=== PATIENT | male | born 1975 | race Caucasian/White ===

== ENCOUNTER 2020-01-21 15:28 | Inpatient (IN) | payer OTHER ==
[~2020-01-21] VITALS: Ht 182.9 cm; Wt 178.9 kg
--- OUTSIDE RECORDS SUMMARY | 2020-01-21 15:31 | XMS REPORT | Clinical Summary ---
Author Author [facility] ict Organization [facility] ict Address Unknown Phone Unavailable Care Team Providers Care Nuclear Medicine Medical Director Name Role Phone PCP Unavailable Allergies Comments Active Allergy Reactions Severity Noted Date NO KNOWN FOOD, MEDICATION OR LATEX ALLERGIES OF 12-24-2014. No Known Allergies 12/24/2014 Medications End Date Status Medication Sig Dispensed Refills Start Date Active lisinopril-hydrochlorothi Take 1 tablet 30 tablet 0 azide (PRINZIDE, by mouth 5 ZESTORETIC) 20-25 mg per daily. tabletIndications: Hypertension Active traMADol (ULTRAM) 50 mg Take 1 tablet 30 tablet 0 tabletIndications: by mouth 6 Puncture wound of left every 8 hours foot, initial encounter as needed for Pain. Active ibuprofen (MOTRIN) 800 mg Take 1 tablet 30 tablet 0 tabletIndications: by mouth 6 Puncture wound of left every 8 hours foot, initial encounter as needed for Pain. Active Problems Problem Noted Date Puncture wound of left foot 06/27/2016 Family History Medical History Relation Name Comments Cancer Paternal Grandfather Hypertension Paternal Grandfather Relation Name Status Comments Paternal Grandfather Social History Date Tobacco Use Types Packs/Day Years Used Passive Smoke Exposure - Never Smoker Drinks/Week oz/Week Comments Alcohol Use No Sex Assigned at Date Recorded Not on file Industry Job Start Date Occupation Not on file Not on file Not on file Travel End Travel History Travel Start No recent travel history available. Last Filed Vital Signs Not on file Plan of Treatment Health Maintenance Due Date Last Done Comments IMM Influenza Seasonal 05/13/2020 Oct to October (>/= 19 yrs) Results Not on fileafter 01/20/2019 Insurance Type Payer Benefit Subscriber ID Effective Phone Address Plan / Dates Group [facility] SELF-PAY SELF-PAY xxxxxxxxx 2016 [phone] [id number] [place] [address] Guarantor Name Account Relation to Date of Phone Ivis navarrete Address Type Patient Geoffrey Harkins Personal/F Self 1975 [phone] [id number] (Home) [place] [address]
[2020-01-21] MEDS ORDERED: SODIUM CHLORIDE 0.9% 1000ML 1,000 ML IV STA ×3 (15:57→17:57)
[2020-01-21] MEDS ORDERED: ASPIRIN 81 MG CHEW TAB PO ONE (16:00)
--- NOTE | 2020-01-21 16:08 | Emergency Department Note ---
History of Present Illnes History of Present Illness Chief Complaint: Skin Rash or Abscess History of Present Illness This is a 44 year old male .lower ext swelling redness for several weeks note elevated bp and elevated blood sugar non compliant SWELLING/REDNESS PEDAL PULSE PALPABLE X 1 MONTH STATES IN THE LAST WEEK HE STARTED TO NOTICE REDNESS/SWELLING TO BILATERAL FOREARMS AND REDNSS TO ABD ALL WARM TO TOUCH C/O ITCH STATES HE DID NOT HAVE INSURANCE AND HAS NOT BEEN CONTROLLING DM AND HTN ALSO C/O INCONTINENCE WHEN STANDING Historian: Patient Arrival Mode: Car Onset (how long ago): week(s) Location: bilat lower ext swelling redness Quality: mod Radiation: Denies non-radiation, Denies back, Denies neck, Denies extremity, Denies abdomen, Denies periumbilical, Denies flank, Denies proximal, Denies dist al, Denies other Severity: moderate Timing of current episode: constant Progression: worsening Context: Denies recent illness, Denies recent surgery, Denies recent immo bilization, Denies recent travel, Denies trauma/injury, Denies new medications, Denies hx of DVT/PE, Denies non-compliance w/ medications, Denies other Relieving factors: none Exacerbating factors: none Treatments prior to arrival: none Past Medical/Family History Physician Review I have reviewed the patient's past medical and family history. Any updates have been documented here. Past Medical History Recent Fever: No Clinical Suspicion of Infectio: Yes New/Unexplained Change in Ment: No Past Medical History: Hypertension, Diabetes Other Surgery: RETINAL DETACHMENT Social History Smoking Cessation: Never Smoker Alcohol Use: None Any Illegal Drug Use: No TB Exposure/Symptoms: No Physically hurt or threatened: No Family History Family history of heart diseas: No Other Last Tetanus: UNK Any Pre-Existing Lines (PICC,: No Review of Systems Review of Systems Constitutional: Reports no symptoms EENTM: Reports no symptoms Cardiovascular: Reports no symptoms Respiratory: Reports no symptoms Gastrointestinal: Reports no symptoms Genitourinary: Reports no symptoms Musculoskeletal: Reports no symptoms Integumentary: Reports no symptoms, Reports other (This is a 44 year old male .lower ext swelling redness and pain for several weeks note elevated bp and elevated blood sugar non compliant) Neurological: Reports no symptoms Psychological: Reports no symptoms Endocrine: Reports no symptoms Hematological/Lymphatic: Reports no symptoms Review of other systems All other systems reviewed and negative. Physical Exam Related Data Allergies: Coded Allergies: No Known Allergies (Unverified , 01/21/20) Triage Vital Signs Vital Signs Date Time Temp Pulse Resp B/P (MAP) Pulse Ox O2 Delivery O2 Flow Rate FiO2 01/21/20 15:38 97.7 96 26 221/122 92 Vital signs reviewed: Yes Physical Exam CONSTITUTIONAL Constitutional: Reports well-developed, Reports well-nourished HENT HENT: Reports normocephalic, Reports atraumatic, Reports oropharynx clear/moist, Reports nose normal HENT L/R: Reports left ext ear normal, Reports right ext ear normal EYES Eyes: Reports PERRL, Reports conjunctivae normal NECK Neck: Reports ROM normal PULMONARY Pulmonary: Reports effort normal, Reports breath sounds normal CARDIOVASCULAR Cardiovascular: Reports regular rhythm, Reports heart sounds normal, Reports capillary refill normal, Reports normal rate GASTROINTESTINAL Abdominal: Reports soft, Reports nontender, Reports bowel sounds normal GENITOURINARY Genitourinary: Reports exam deferred SKIN Skin: Reports warm, Reports dry, Reports erythema, Reports other (This is a 44 year old male .lower ext swelling redness for several weeks note elevated bp and elevated blood sugar non compliant- noted redness swelling on exam to lower ext worse on left side w/ weeping noted ) MUSCULOSKELETAL Musculoskeletal: Reports ROM normal NEUROLOGICAL Neurological: Reports alert, Reports oriented x 3, Reports no gross motor or sensory deficits PSYCHOLOGICAL Psychological: Reports mood/affect normal, Reports judgement normal Results Diagnostics Tests Diagnostic comments venous dopplar study neg for dvt Procedures 12 Lead ECG Interpretation ECG Interpretation : Bellows Assembler: Interpreted by ED physician Date: Jan 21, 2020 Time: 16:06 Prior ECG tracings: reviewed Rhythm: sinus rhythm Rate: normal BPM: 96 QRS axis: left Conduction: right bundle branch block T wave inversion: V1 Other findings: prolonged QTc interval Assessment & Plan Medical Decision Making MDM This is a 44 year old male .lower ext swelling redness for several weeks note elevated bp and elevated blood sugar non compliant - lab ekg cxr blood culture lactic ordered and pt medicated w/ zosyn vanc in ed D/D cellulitis / sepsis / dvt / hyperglycemia / hypertension suspect sepsis - meets SIRS criteria hr 96 resp 26 o2 sat 92% rm air source - skin blood cultures lactic drawn in triage pt medicated w/ zosyn and van and ns 1 liter ordered in triage severe sepsis 1625 1st lactic- 2.2 wbc 11.36 2nd bolus ns ordered 1756 2nd lactic 2.9 3rd liter ns ordered Reassessment Reassessment time: 17:43 Reassessment discussed lab rad results plan of care and need for admit spoke w/ Dr Galvan will admit Assessment & Plan Final Impression: (1) Hypertension (2) Hyperglycemia (3) Sepsis (4) Cellulitis Depart Disposition: ADMITTED Last Vital Signs Date Time Temp Pulse Resp B/P (MAP) Pulse Ox O2 Delivery O2 Flow Rate FiO2 01/21/20 15:38 97.7 96 26 221/122 92 FLAVIO THAYER MD Jan 21, 2020 16:08
[2020-01-21 16:11] LABS: BASOPHILS % 0.3 % (0.0-1.0); EOSINOPHILS # (AUTO) 1.7 (0.0-0.4); EOSINOPHILS % 15.1 % (0.0-6.0); HEMATOCRIT 46.9 % (38.2-49.6); HEMOGLOBIN 15.1 g/dL (14.0-18.0); LYMPHOCYTES # (AUTO) 1.9 (1.0-3.2); MEAN CORPUSCULAR HGB CONC 32.2 g/dL (31-35); MONOCYTES # (AUTO) 0.7 (0.2-0.8); MONOCYTES % 6.5 % (4.4-11.3); NEUTROPHILS # (AUTO) 6.9 (2.1-6.9); NEUTROPHILS % 60.7 % (38.7-80.0); PLATELET COUNT 237 x10e3/uL (140-360); RED BLOOD COUNT 5.39 x10e6/uL (4.3-5.7); RED CELL DISTRIBUTION WIDTH 15.1 % (11.7-14.4)
[2020-01-21 16:20] LABS: INR 0.88; PROTHROMBIN TIME 12.5 seconds (11.9-14.5)
[2020-01-21 16:21] LABS: PARTIAL THROMBOPLASTIN TIME 25.4 seconds (23.8-35.5)
[2020-01-21 16:27] LABS: ALANINE AMINOTRANSFERASE 82 IU/L (0-55); ALBUMIN 3.1 g/dL (3.5-5.0); ALBUMIN/GLOBULIN RATIO 0.8 (0.8-2.0); ALKALINE PHOSPHATASE 116 IU/L (40-150); ANION GAP 15.1 mmol/L (8-16); BLOOD UREA NITROGEN 13 mg/dL (7-26); BUN/CREATININE RATIO 12 (6-25); CALCIUM 9.1 mg/dL (8.4-10.2); CARBON DIOXIDE 26 mmol/L (22-29); CHLORIDE 101 mmol/L (98-107); CREATINE KINASE 128 IU/L (30-200); CREATININE, SERUM 1.09 mg/dL (0.72-1.25); EST GLOMERULAR FILTRATION RATE > 60 ML/MIN (60-); GLUCOSE 297 mg/dL (74-118); POTASSIUM 3.1 mmol/L (3.5-5.1); SODIUM 139 mmol/L (136-145)
[2020-01-21] MEDS ORDERED: HYDRALAZINE HCL 20 MG/ML VIAL IV STA (16:27)
[2020-01-21 16:29] LABS: BILIRUBIN,URINE NEGATIVE (NEGATIVE); CLARITY,URINE CLEAR (CLEAR); COLOR,URINE AMBER (YELLOW); KETONES,URINE TRACE (NEGATIVE); LEUKOCYTE ESTERASE ,URINE NEGATIVE (NEGATIVE); NITRITE,URINE NEGATIVE (NEGATIVE); PROTEIN,URINE DIPSTICK 2+ (NEGATIVE); URINE UROBILINOGEN 0.2 mg/dL (0.2 - 1)
[2020-01-21 16:37] LABS: BACTERIA,URINE FEW /HPF; EPITHELIAL CELLS,URINE FEW /LPF; WBC,URINE (MAN) 0-5 /HPF (0-5)
[2020-01-21 16:37] LABS: B-TYPE NATRIURETIC PEPTIDE2 63.2 pg/mL (0-100)
[2020-01-21] MEDS ORDERED: POTASSIUM CHLORIDE 20 MEQ TAB CR PO STA (16:38)
[2020-01-21] MEDS: PIPER-TAZ 3.375 GM 50 ML IV SCH ×2 (16:51→22:30)
[2020-01-21] MEDS ORDERED: VANCOMYCIN 1GM/NS 250 ML 250 ML IV ONE (17:00)
[2020-01-21] MEDS ORDERED: MORPHINE SULFATE 2 MG/ML SYR 1ML IV PRN (17:45)
[2020-01-21] MEDS ORDERED: SODIUM CHLORIDE 0.9% 1000ML 1,000 ML IV SCH (17:45)
[2020-01-21] MEDS ORDERED: NITROGLYCERIN 2% OINT 1 GM PKT TOP ONE (17:45)
[2020-01-21] MEDS ORDERED: MORPHINE SULFATE INJ 4 MG/ML INJ 1ML IV PRN (18:00)
--- OUTSIDE RECORDS SUMMARY | 2020-01-21 18:01 | XMS REPORT | Clinical Summary ---
Author Author [facility] ict Organization [facility] ict Address Unknown Phone Unavailable Care Team Providers Care Sales Recruitment Specialist Name Role Phone PCP Unavailable Allergies Comments [...] Effective Phone Address Plan / Dates Group [facility] SELF-PAY SELF-PAY xxxxxxxxx 2016 [phone] [id number] [place] [place] [address] Guarantor Name Account Relation to Date of Phone Ivis navarrete Address Type Patient Geoffrey Harkins Personal/F Self 1975 [phone] [address] (Home) [place] [address]
--- NOTE | 2020-01-21 18:16 | Diagnostic Imaging Report ---
EXAM: CHEST SINGLE (PORTABLE) DATE: 01/21/2020 5:20 PM INDICATION: Diabetic ulcer, leg swelling ^Y ^ERMD ORDER ^[id number] ^1720 ^Y COMPARISON: None FINDINGS: Lines and tubes: None The heart is upper normal size for this projection. No focal pulmonary opacity, pleural effusion or pneumothorax. Prominence of markings at the lung bases likely related to underpenetration and low lung volumes. Upper abdomen unremarkable. No acute bony abnormality. IMPRESSION: No evidence for acute disease. Signed by: Dr. Deshawn Archibald M.D. on 01/21/2020 6:12 PM
[2020-01-21] MEDS ORDERED: POTASSIUM CHLORIDE 20 MEQ TAB CR PO ONE (21:19)
[2020-01-21 21:45] VITALS: BP 208/121
[2020-01-21 21:50] VITALS: BP 208/121
--- NOTE | 2020-01-21 22:15 | NUR ---
PATIENT RECEIVED FROM ER. PATIENT IS AAOX3. RESP EVEN AND UNLABORED. BLE CELLULITIS NOTED. LEFT LEG RED AND SWOLLEN NOTED. GENERALIZE RASHES NOTED. TELE IN PLACE NOTED. ORIENTED TO ROOM. CALL LIGHT WITHIN REACH. INSTRUCT TO CALL FOR ASSISTANCE. BED LOW/LOCKED. CONTINUE TO MONITOR CLOSELY
[2020-01-21] MEDS: HYDROXYZINE HCL 25 MG TAB PO PRN (22:30)
[2020-01-21] MEDS: CLONIDINE HCL 0.1 MG TAB PO PRN (22:30)
--- NOTE | 2020-01-21 22:30 | NUR ---
HIGH BLOOD PRESSURE NOTED. DR HERNÁNDEZ PREVIOUSLY NOTIFIED BY ER NURSE. PRN MED GIVEN PER MD ORDER. CONTINUE TO MONITOR CLOSELY
[2020-01-22] VITALS (10 sets, daily range): BP systolic 146–239; BP diastolic 93–115
--- NOTE | 2020-01-22 00:27 | NUR ---
HIGH BLOOD PRESSURE NOTED. NOTIFIED DR HERNÁNDEZ. NEW ORDER RECEIVED
[2020-01-22] MEDS ORDERED: DEXTROSE 50% SYRINGE 50 ML IV PRN (00:30)
[2020-01-22] MEDS: ONDANSETRON HCL INJ 2MG/ML 2ML 2 MG/ML VIAL IV PRN (00:39)
[2020-01-22] MEDS: HYDROMORPHONE 1MG/1ML INJ IV PRN (00:39)
[2020-01-22] MEDS: PIPER-TAZ 3.375 GM 50 ML IV SCH ×3 (04:01→15:59)
[2020-01-22] MEDS: CLONIDINE HCL 0.1 MG TAB PO PRN (06:10)
--- NOTE | 2020-01-22 06:40 | NUR ---
PAGED DR ALVAREZ FOR CONSULTATION. AWAITING FOR MD TO CALL BACK
[2020-01-22 06:49] LABS: BASOPHILS # (AUTO) 0.1 (0.0-0.1); BASOPHILS % 0.4 % (0.0-1.0); EOSINOPHILS # (AUTO) 1.8 (0.0-0.4); EOSINOPHILS % 14.2 % (0.0-6.0); HEMATOCRIT 46.4 % (38.2-49.6); HEMOGLOBIN 14.5 g/dL (14.0-18.0); LYMPHOCYTES # (AUTO) 1.7 (1.0-3.2); MEAN CORPUSCULAR HEMOGLOBIN 27.9 pg (28-32); MEAN CORPUSCULAR HGB CONC 31.3 g/dL (31-35); MEAN CORPUSCULAR VOLUME 89.2 fL (81-99); MONOCYTES % 7.6 % (4.4-11.3); NEUTROPHILS # (AUTO) 7.9 (2.1-6.9); NEUTROPHILS % 63.4 % (38.7-80.0); PLATELET COUNT 194 x10e3/uL (140-360); RED CELL DISTRIBUTION WIDTH 15.4 % (11.7-14.4)
--- NOTE | 2020-01-22 07:00 | NUR ---
BEDSIDE SHIFT REPORT RECEIVED FROM LEAD FORMER RN. PT DENIES NEEDS AT THIS TIME.
[2020-01-22 07:07] LABS: ALANINE AMINOTRANSFERASE 81 IU/L (0-55); ALBUMIN 2.9 g/dL (3.5-5.0); ALBUMIN/GLOBULIN RATIO 0.8 (0.8-2.0); ALKALINE PHOSPHATASE 119 IU/L (40-150); ANION GAP 13.5 mmol/L (8-16); BLOOD UREA NITROGEN 12 mg/dL (7-26); BUN/CREATININE RATIO 10 (6-25); CALCIUM 8.2 mg/dL (8.4-10.2); CARBON DIOXIDE 25 mmol/L (22-29); CHLORIDE 104 mmol/L (98-107); CREATININE, SERUM 1.17 mg/dL (0.72-1.25); EST GLOMERULAR FILTRATION RATE > 60 ML/MIN (60-); GLUCOSE 302 mg/dL (74-118); POTASSIUM 3.5 mmol/L (3.5-5.1); SODIUM 139 mmol/L (136-145)
[2020-01-22] MEDS: HYDRALAZINE HCL 25 MG TAB PO SCH ×3 (08:32→21:28)
[2020-01-22] MEDS: INSULIN LISPRO 100 UNIT/1 ML 3ML VIAL SQ SCH ×4 (08:33→21:30)
[2020-01-22] MEDS ORDERED: HYDRALAZINE HCL 25 MG TAB PO SCH (09:00)
[2020-01-22] MEDS ORDERED: LISINOPRIL 10 MG TAB PO SCH (09:00)
[2020-01-22] MEDS ORDERED: METOPROLOL TART25 MG PO (18:30)
[2020-01-22] MEDS ORDERED: CYMBALTA20 MG PO (18:30)
[2020-01-22] MEDS ORDERED: LISINOPRIL40 MG (18:30)
[2020-01-22] MEDS ORDERED: CLOPIDOGREL75 MG PO (18:30)
[2020-01-22] MEDS ORDERED: LEVOTHYROXINE50 MCG PO (18:30)
[2020-01-22] MEDS ORDERED: ASPIR 8181 MG (18:30)
[2020-01-22] MEDS ORDERED: DILTIAZEM 24HR120 M1 (18:30)
[2020-01-22] MEDS ORDERED: ULTRAM50 MG PO (18:30)
[2020-01-22] MEDS ORDERED: METFORMIN HCL500 MG PO (18:30)
[2020-01-22] MEDS ORDERED: SPIRONOLACTONE25 MG PO (18:30)
[2020-01-22] MEDS ORDERED: PRAVACHOL40 MG PO (18:30)
[2020-01-22] MEDS: VANCOMYCIN 1GM/NS 250 ML 250 ML IV SCH (18:35)
[2020-01-22] MEDS: CEFTRIAXONE SOD 2 GM/NS 100 ML 100 ML IV SCH (21:40)
[2020-01-23] VITALS (8 sets, daily range): BP systolic 115–181; BP diastolic 87–121
[2020-01-23] MEDS: CLONIDINE HCL 0.1 MG TAB PO PRN (00:45)
[2020-01-23] MEDS ORDERED: ACETAMINOPHEN 325 MG TAB PO PRN (04:45)
[2020-01-23] MEDS: FUROSEMIDE 40 MG TAB PO SCH ×2 (05:15→18:37)
[2020-01-23] MEDS: VANCOMYCIN 1GM/NS 250 ML 250 ML IV SCH ×2 (05:25→18:37)
--- NOTE | 2020-01-23 05:47 | Progress Note ---
DATE: 01/22/2020 HISTORY OF PRESENT ILLNESS: Mr. Harkins is a 44-year-old white male, history of obesity, history of dermatitis, comes in with redness and swelling of his leg. The patient was admitted and started on Zosyn. The patient, who does have diabetes, obesity, and dermatitis. The leg was quite red and swollen. PAST MEDICAL HISTORY: As above. PAST SURGICAL HISTORY: He denies. ALLERGIES: NKA. SOCIAL HISTORY: There is no smoking, drug abuse, or alcohol use. FAMILY HISTORY: Unremarkable. LABORATORY DATA: Reviewed. PHYSICAL EXAMINATION: GENERAL: He is currently alert and oriented. Does not seem to be in acute distress. VITAL SIGNS: Stable, currently afebrile. HEENT: He is not icteric. NECK: Supple. CHEST: Clear. HEART: S1 and S2. No S3, S4, or murmur. ABDOMEN: Soft and obese. No tenderness. EXTREMITIES: The right leg, there is erythema. There is edema involving the whole leg. He is telling me that is a lot better since he came. LABORATORY DATA: When he first came was white count 11.36, hemoglobin 15. His sodium 139, potassium 3.5, creatinine 1.17, glucose 302. IMPRESSION: 1. Cellulitis of the left lower extremity. 2. Diabetes mellitus. 3. Obesity. 4. Elevated liver enzyme. We will put the patient on Rocephin 2 g q.24 hours and vancomycin 1 g q.12. We will continue to follow clinically. Recheck CBC. Recheck chem panel. Diabetic control is ordered. We will follow. MD MALLORIE Adorno/MODL /[id number]
[2020-01-23 06:54] LABS: BASOPHILS # (AUTO) 0.1 (0.0-0.1); BASOPHILS % 0.5 % (0.0-1.0); EOSINOPHILS # (AUTO) 1.6 (0.0-0.4); EOSINOPHILS % 10.5 % (0.0-6.0); HEMATOCRIT 48.2 % (38.2-49.6); HEMOGLOBIN 14.9 g/dL (14.0-18.0); LYMPHOCYTES # (AUTO) 1.8 (1.0-3.2); LYMPHOCYTES % 11.9 % (18.0-39.1); MEAN CORPUSCULAR HEMOGLOBIN 28.1 pg (28-32); MEAN CORPUSCULAR HGB CONC 30.9 g/dL (31-35); MEAN CORPUSCULAR VOLUME 90.9 fL (81-99); MONOCYTES % 6.7 % (4.4-11.3); NEUTROPHILS # (AUTO) 10.5 (2.1-6.9); PLATELET COUNT 229 x10e3/uL (140-360); RED CELL DISTRIBUTION WIDTH 15.2 % (11.7-14.4)
--- NOTE | 2020-01-23 07:00 | NUR ---
BEDSIDE SHIFT REPORT RECEIVED FROM BALL RACKER RN. PT DENIES NEEDS AT THIS TIME.
[2020-01-23 07:32] LABS: ALANINE AMINOTRANSFERASE 76 IU/L (0-55); ALBUMIN 3.1 g/dL (3.5-5.0); ALBUMIN/GLOBULIN RATIO 0.8 (0.8-2.0); ALKALINE PHOSPHATASE 110 IU/L (40-150); ANION GAP 15.6 mmol/L (8-16); BLOOD UREA NITROGEN 10 mg/dL (7-26); BUN/CREATININE RATIO 9 (6-25); CALCIUM 8.1 mg/dL (8.4-10.2); CARBON DIOXIDE 24 mmol/L (22-29); CHLORIDE 103 mmol/L (98-107); CREATININE, SERUM 1.15 mg/dL (0.72-1.25); EST GLOMERULAR FILTRATION RATE > 60 ML/MIN (60-); GLUCOSE 219 mg/dL (74-118); POTASSIUM 3.6 mmol/L (3.5-5.1); SODIUM 139 mmol/L (136-145)
[2020-01-23] MEDS: HYDRALAZINE HCL 25 MG TAB PO SCH ×3 (08:19→21:37)
[2020-01-23] MEDS: INSULIN LISPRO 100 UNIT/1 ML 3ML VIAL SQ SCH ×4 (08:20→21:00)
--- NOTE | 2020-01-23 13:13 | Progress Note ---
DATE: SUBJECTIVE: The patient is seen and evaluated. Available labs and notes reviewed. Discussed with Dr. Beard. A long discussion with the patient. Patient is currently comfortable in bed, feels better, still complains of cellulitis of left leg and complained about his sugar not being controlled at home. No nausea, vomiting, fever, chills, chest pain, or shortness of breath. OBJECTIVE: VITAL SIGNS: Temperature is 98.7, pulse 90, respirations 18, and blood pressure 161/115. The patient did not have any temperature of greater than 98.9 during this admission. GENERAL: Alert and oriented, no acute distress. CV: S1 and S2. CHEST: Equal expansion. Decreased breath sounds. The patient is morbidly obese, not easy to asses the lungs. ABDOMEN: Morbidly obese, soft and no tenderness. HEENT: Moist. No pallor. No JVD. EXTREMITIES: Cellulitis in left lower extremity from the foot almost to the knee with some xeroderma and wounds that seem to be dried up and scabbed over. MEDICATIONS: Medication list reviewed as far as Infectious Disease point of view. The patient is on vancomycin IV and Rocephin. LABORATORY STUDIES: White count of 15.02, hemoglobin 14.9, platelet 229. Sodium 139, potassium 3.6, creatinine 1.15. SEROLOGY: Coronavirus PCR 01/21/2020 is pending. MICROBIOLOGY: Blood culture negative 24 hours. Urine cultures negative 48 hours, both are from 01/21/2020. RADIOLOGY STUDIES: 01/21/2020 chest x-ray showed no evidence for acute disease. The patient had an echocardiogram showing ejection fraction of 45-50%. Also, the patient had venous Doppler bilateral lower extremities, which were negative for DVTs. ASSESSMENT AND PLAN: 1. Left lower extremity cellulitis. 2. Diabetes not controlled. 3. Morbid obesity. 4. Elevated LFTs with a recheck improving AST from 47 to 37 and ALT also improving from 81 to 76. Total bilirubin 0.6 with ALP of 110, which has improved from 08/31. Continue with IV antibiotics at this time with elevated lower extremities. Venous Dopplers negative for DVT and ejection fraction of 45-50% on echo. Continue monitor patient clinically and follow with the labs. Discussed with the nurse. No new events. Discussed with Dr. Beard. Please refer to chart for more information. Dictated by ILSA Ojeda (Al)-C MD [facility] Ad[facility]/KIM /[id number]
[2020-01-23] MEDS: CEFTRIAXONE SOD 2 GM/NS 100 ML 100 ML IV SCH (21:13)
[2020-01-23] MEDS: TRAMADOL HCL 50 MG TAB PO PRN (23:54)
[2020-01-24] VITALS (9 sets, daily range): BP systolic 149–191; BP diastolic 86–106
[2020-01-24] MEDS: ONDANSETRON HCL INJ 2MG/ML 2ML 2 MG/ML VIAL IV PRN (00:49)
[2020-01-24] MEDS: HYDROMORPHONE 1MG/1ML INJ IV PRN (00:53)
[2020-01-24] MEDS: HYDROXYZINE HCL 25 MG TAB PO PRN (04:57)
[2020-01-24] MEDS ORDERED: LEVOFLOXACIN 750MG/D5W 150ML 150 ML IV SCH (06:15)
[2020-01-24] MEDS: VANCOMYCIN 1GM/NS 250 ML 250 ML IV SCH ×2 (06:54→17:40)
[2020-01-24] MEDS: FUROSEMIDE 40 MG TAB PO SCH ×2 (06:54→17:40)
--- NOTE | 2020-01-24 07:00 | NUR ---
BEDSIDE SHIFT REPORT RECEIVED FROM GHOST WRITER RN. PT DENIES NEEDS AT THIS TIME.
[2020-01-24] MEDS: HYDRALAZINE HCL 25 MG TAB PO SCH ×3 (08:33→22:26)
[2020-01-24] MEDS: LEVOFLOXACIN 750MG/D5W 150ML 150 ML IV SCH (08:33)
[2020-01-24] MEDS: METHYLPREDNISOLONE SOD SUCC 125 MG/2ML VIAL IV SCH ×2 (08:33→21:05)
[2020-01-24] MEDS: AMLODIPINE BESYLATE 5 MG TAB PO SCH (08:34)
[2020-01-24] MEDS: INSULIN LISPRO 100 UNIT/1 ML 3ML VIAL SQ SCH ×4 (08:34→22:31)
[2020-01-24 10:30] LABS: BASOPHILS # (AUTO) 0.1 (0.0-0.1); BASOPHILS % 0.6 % (0.0-1.0); EOSINOPHILS # (AUTO) 1.3 (0.0-0.4); EOSINOPHILS % 11.1 % (0.0-6.0); HEMATOCRIT 46.2 % (38.2-49.6); HEMOGLOBIN 14.4 g/dL (14.0-18.0); LYMPHOCYTES # (AUTO) 1.2 (1.0-3.2); MEAN CORPUSCULAR HEMOGLOBIN 27.8 pg (28-32); MEAN CORPUSCULAR HGB CONC 31.2 g/dL (31-35); MEAN CORPUSCULAR VOLUME 89.2 fL (81-99); MONOCYTES # (AUTO) 0.6 (0.2-0.8); MONOCYTES % 5.2 % (4.4-11.3); NEUTROPHILS # (AUTO) 8.7 (2.1-6.9); NEUTROPHILS % 72.8 % (38.7-80.0); PLATELET COUNT 215 x10e3/uL (140-360); RED BLOOD COUNT 5.18 x10e6/uL (4.3-5.7); RED CELL DISTRIBUTION WIDTH 15.1 % (11.7-14.4)
[2020-01-24 10:51] LABS: ALANINE AMINOTRANSFERASE 71 IU/L (0-55); ALBUMIN/GLOBULIN RATIO 0.8 (0.8-2.0); ALKALINE PHOSPHATASE 103 IU/L (40-150); ANION GAP 13.1 mmol/L (8-16); BLOOD UREA NITROGEN 8 mg/dL (7-26); BUN/CREATININE RATIO 7 (6-25); CALCIUM 8.2 mg/dL (8.4-10.2); CARBON DIOXIDE 28 mmol/L (22-29); CHLORIDE 100 mmol/L (98-107); CREATININE, SERUM 1.07 mg/dL (0.72-1.25); EST GLOMERULAR FILTRATION RATE > 60 ML/MIN (60-); GLUCOSE 262 mg/dL (74-118); POTASSIUM 3.1 mmol/L (3.5-5.1); SODIUM 138 mmol/L (136-145)
--- NOTE | 2020-01-24 11:47 | NUR ---
PT/SON REFUSED TO PARTICIPATE IN DPA
--- NOTE | 2020-01-24 11:57 | Progress Note ---
DATE: SUBJECTIVE: The patient is seen and evaluated. Available labs and notes reviewed. REVIEW OF SYSTEMS: Feels better. No nausea, vomiting, fever, chills, chest pain, shortness of breath, headache, rash, dysuria, or polyuria. PHYSICAL EXAMINATION: VITAL SIGNS: Temperature 98, pulse 89, respiration 18, and blood pressure 149/86. The patient remains afebrile. GENERAL: Alert and oriented, no acute distress. CV: S1, S2. CHEST: Equal expansion. Decreased breath sounds. No acute distress. ABDOMEN: Morbidly obese, soft, nontender. HEENT: Moist. No pallor. No JVD. EXTREMITIES: Left lower extremity improved in erythema and swelling seems to be slightly improved as well. The wounds are scabbed over and no active drainage noted during my exam. MEDICATIONS: Medication list reviewed. From ID point of view, the patient is on Levaquin, vancomycin IV. The patient is also on methylprednisolone 60 mg IV push q.12 hours. LABORATORY STUDIES: White count of 15.02, concern methylprednisolone 60 mg push b.i.d., hemoglobin is 14.9, platelet 229. BMP; I do not have any new BMP, however, last creatinine was 1.15. His sodium 139, potassium 3.6 with estimated GFR greater than 60. Serology; Coronavirus PCR not detected. Vancomycin trough 01/22 was 18.5. MICROBIOLOGY: Blood culture negative. Urine culture negative on 01/20. Bilateral lower extremity venous Dopplers. No evidence of DVT. The patient had echo showing 45% to 50% ejection fraction. ASSESSMENT AND PLAN: 1. Cellulitis of the left lower extremity. 2. Leukocytosis, concern, methylprednisolone. Clinically no acute distress. Continue to monitor. 3. Diabetes. 4. Morbid obesity. 5. Elevated LFTs, which are improving. I do not have any new liver function tests from today. Please refer to previous note on last LFT results. There is report from Internal Medicine that the patient felt bad with Rocephin. Therefore, Rocephin was changed to Levaquin. We will currently monitor patient clinically. Follow with the labs. The patient had no complaints during my visit. Please refer to chart for more information. Dictated by Florian Snyder PA-C (Al) MD [facility]/HARISL /[id number]
--- NOTE | 2020-01-24 19:30 | NUR ---
Patient received sitting up in bed. AAO x 4. Patient had no complaints of pain. Respirations even and non-labored. Safety measures in place. Patient instructed to call for assistance when needed. Call light within reach.
[2020-01-24] MEDS: CLONIDINE HCL 0.1 MG TAB PO PRN (21:06)
[2020-01-25] VITALS (8 sets, daily range): BP systolic 142–189; BP diastolic 84–110
[2020-01-25] MEDS: FUROSEMIDE 40 MG TAB PO SCH ×2 (05:17→17:52)
[2020-01-25] MEDS: VANCOMYCIN 1GM/NS 250 ML 250 ML IV SCH ×2 (07:00→17:52)
[2020-01-25] MEDS ORDERED: POTASSIUM CHLORIDE 20 MEQ TAB CR PO SCH (07:00)
--- NOTE | 2020-01-25 07:00 | NUR ---
BEDSIDE SHIFT REPORT RECEIVED FROM BRIM STRETCHER RN. PT DENIES NEEDS AT THIS TIME.
--- NOTE | 2020-01-25 07:00 | NUR ---
Patient resting comfortably. Walking rounds done. Shift report given regarding patient's status.
[2020-01-25] MEDS: INSULIN LISPRO 100 UNIT/1 ML 3ML VIAL SQ SCH ×4 (07:55→20:54)
[2020-01-25] MEDS: HYDRALAZINE HCL 25 MG TAB PO SCH ×3 (09:42→20:43)
[2020-01-25] MEDS: LEVOFLOXACIN 750MG/D5W 150ML 150 ML IV SCH (09:42)
[2020-01-25] MEDS: METHYLPREDNISOLONE SOD SUCC 125 MG/2ML VIAL IV SCH ×2 (09:42→20:43)
[2020-01-25] MEDS: AMLODIPINE BESYLATE 5 MG TAB PO SCH (09:42)
--- NOTE | 2020-01-25 13:33 | Progress Note ---
DATE: SUBJECTIVE: The patient is seen and evaluated. Available labs reviewed. Discussed with Dr. Beard and discussed with the patient. REVIEW OF SYSTEMS: Feels better. Apparently, patient has showered this morning and soaked up his left lower extremity cellulitis and cleaned it up and overall redness is down and he feels better. No nausea, vomiting, fever, chills, chest pain, shortness of breath, headache, rash, dysuria, or polyuria. PHYSICAL EXAMINATION: VITAL SIGNS: Temperature 98.1, pulse 103, respirations 19, blood pressure 172/100. GENERAL: Alert and oriented. No breakouts from the antibiotics. No rash is noted. CV: S1-S2. CHEST: Equal expansion. Decreased breath sounds. ABDOMEN: Morbidly obese, abdomen is soft, nontender. HEENT: Moist. No pallor. No JVD. EXTREMITIES: Cellulitis of left lower extremity seems to be slightly improving in redness and edema. Wounds are scabbed over and no active drainage noted. MEDICATIONS: Medication list reviewed. From Infectious Disease point of view, the patient is on vancomycin IV and Levaquin and methylprednisolone. LABORATORY STUDIES: White count of 11.97 yesterday, 01/24/2020 with hemoglobin of 14.4, platelets 215. Creatinine was 1.07. No new CBC or BMP from today. TOXICOLOGY: Vancomycin trough is 10.4. SEROLOGY: Coronavirus PCR not detected 01/21/2020. MICROBIOLOGY: Blood culture negative, 72 hours. Urine culture negative. Both urine and blood cultures are from 01/21/2020. RADIOLOGY STUDIES: No new radiology studies available. ASSESSMENT AND PLAN: 1. Cellulitis of the left lower extremity. 2. Leukocytosis, improved. However, the patient remains on methylprednisone, continue to monitor. 3. Diabetes. 4. Morbid obesity. 5. Elevated LFT. 6. Breakout, from Rocephin, which was changed to Levaquin by attending physician. 7. Continue antibiotics at this point. Vancomycin level is as mentioned above. Leukocytosis is improved. Clinically, no acute distress. Continue with wound care. Elevate lower extremities. Further management of this patient is based on daily findings on laboratory and physical examination. Discussed with Dr. Beard in details. Please refer to the chart for more information. Dictated by Florian Snyder PA-C (Al) MD [facility]/KIM /[id number]
[2020-01-25] MEDS: TRAMADOL HCL 50 MG TAB PO PRN (15:42)
[2020-01-26] VITALS (9 sets, daily range): BP systolic 161–192; BP diastolic 91–120
[2020-01-26] MEDS: CLONIDINE HCL 0.1 MG TAB PO PRN ×2 (00:48→01:54)
--- NOTE | 2020-01-26 00:48 | NUR ---
PATIENT IN STABLE CONDITION. ASYMPTOMATIC.
--- NOTE | 2020-01-26 01:47 | NUR ---
PAGED MD HERNÁNDEZ TO REPORT B/P. AWAITING CALL BACK.
--- NOTE | 2020-01-26 01:54 | NUR ---
SPOKE TO MD HERNÁNDEZ. PATIENT B/P 171/110. ORDERED TO ADMINISTER ANOTHER DOSE CLONIDINE.
[2020-01-26 06:05] LABS: BASOPHILS % 0.2 % (0.0-1.0); HEMATOCRIT 46.6 % (38.2-49.6); HEMOGLOBIN 14.8 g/dL (14.0-18.0); LYMPHOCYTES # (AUTO) 1.3 (1.0-3.2); LYMPHOCYTES % 7.4 % (18.0-39.1); MEAN CORPUSCULAR HEMOGLOBIN 27.8 pg (28-32); MEAN CORPUSCULAR HGB CONC 31.8 g/dL (31-35); MEAN CORPUSCULAR VOLUME 87.6 fL (81-99); MONOCYTES # (AUTO) 0.8 (0.2-0.8); MONOCYTES % 4.6 % (4.4-11.3); NEUTROPHILS # (AUTO) 15.6 (2.1-6.9); NEUTROPHILS % 87.2 % (38.7-80.0); PLATELET COUNT 252 x10e3/uL (140-360); RED BLOOD COUNT 5.32 x10e6/uL (4.3-5.7); RED CELL DISTRIBUTION WIDTH 15.4 % (11.7-14.4)
[2020-01-26 06:32] LABS: ALBUMIN 3.1 g/dL (3.5-5.0); ALBUMIN/GLOBULIN RATIO 0.9 (0.8-2.0); ANION GAP 16.1 mmol/L (8-16); CALCIUM 8.5 mg/dL (8.4-10.2); CREATININE, SERUM 1.33 mg/dL (0.72-1.25); POTASSIUM 3.1 mmol/L (3.5-5.1)
[2020-01-26] MEDS: FUROSEMIDE 40 MG TAB PO SCH ×2 (06:32→08:55)
[2020-01-26] MEDS: VANCOMYCIN 1GM/NS 250 ML 250 ML IV SCH ×2 (06:32→19:53)
--- NOTE | 2020-01-26 07:16 | NUR ---
REPORT GIVEN TO DAYSHIFT NURSE. RESTING IN BED. IN STABLE CONDITION. NO SIGNS OF IV INFILTRATION. ELFEGO LOCKED AND IN LOW POSITION. CALL LIGHT WITHIN REACH.
[2020-01-26] MEDS ORDERED: POTASSIUM CHLORIDE 20 MEQ TAB CR PO STA (08:03)
[2020-01-26] MEDS: LEVOFLOXACIN 750MG/D5W 150ML 150 ML IV SCH (08:51)
[2020-01-26] MEDS ORDERED: SODIUM CHLORIDE 0.9% 250ML 250 ML ONE (08:52)
[2020-01-26] MEDS: AMLODIPINE BESYLATE 5 MG TAB PO SCH (08:54)
[2020-01-26] MEDS: METHYLPREDNISOLONE SOD SUCC 125 MG/2ML VIAL IV SCH ×2 (08:54→22:00)
[2020-01-26] MEDS: HYDRALAZINE HCL 25 MG TAB PO SCH ×3 (08:55→22:00)
--- NOTE | 2020-01-26 10:15 | NUR ---
Pt. expressed no spiritual or emotional concerns at this time. Pt's at bedside. Speech Lang Path Therapist provided hospitality and information on how to reach community fundraiser, if needed. No need to follow at this time. DALLIN GUO Speech Lang Path Therapist Spiritual Care Department O: [phone]
--- NOTE | 2020-01-26 11:00 | NUR ---
Spoke to ILSA Arcos. States pt can discharge home with oral abx. Prescription left in chart.
--- NOTE | 2020-01-26 11:22 | Progress Note ---
DATE: SUBJECTIVE: The patient is seen and evaluated. Available labs and notes reviewed. Discussed with Dr. Beard in details. Please refer to chart for more information. REVIEW OF SYSTEMS: Complained about hypertension, but no headache, nausea, vomiting, fever, chills, chest pain, or shortness of breath. The patient also states that his cellulitis of the left leg has improved in redness and is not as painful. PHYSICAL EXAMINATION: VITAL SIGNS: Temperature 97.9, pulse 88, respiration 20, and blood pressure 169/106. GENERAL: Alert and oriented. No acute distress. CV: S1 and S2. CHEST: Equal expansion. Clear to auscultation. No acute distress. ABDOMEN: Soft and nontender. No distention. HEENT: Moist. No pallor. No JVD. EXTREMITIES: Cellulitis of left lower extremity with some superficial ulcers. No obvious drainage noted. Ulcers are mostly scabbed over. Decrease in edema and erythema. MEDICATIONS: Medication list reviewed and from Infectious Disease point of view, the patient is on vancomycin IV and Levaquin. LABORATORY STUDIES: White count of 17.86, hemoglobin 14.8, and platelet 252. Sodium 140, potassium 3.1, and creatinine 1.33. Toxicology; vancomycin trough 10.4 yesterday, 01/25/2020. Serology; coronavirus PCR not detected, 01/21/2020. MICROBIOLOGY: Blood culture and urine culture on 01/21/2020, negative. RADIOLOGY STUDIES: No new radiology studies available. ASSESSMENT AND PLAN: 1. Left lower extremity cellulitis. 2. Leukocytosis, up a little bit. Medication list reviewed. The patient is on methylprednisolone 60 mg IV push twice a day. Clinically, no complaints. No acute distress. No diarrhea. 3. Hypertension. 4. Diabetes. 5. Morbid obesity. 6. Elevated LFT. Recheck total bilirubin is 0.4, AST 25, ALT 50, ALP 98, which all seen back and within normal limit. 7. Debility. 8. Continue to monitor the patient clinically and follow up with the labs. Overall improved. Please refer to chart for more information. Dictated by Florian Snyder PA-C (Al) Edgar Beard MD /MODL /[id number]
--- NOTE | 2020-01-26 11:23 | NUR ---
SPOKE WITH PT AND , WHOM STATE HE IS CURRENTLY ON MEDICAID. BUT SHE IS HAVING TROUBLE KEEPING HIM ON IT. GAVE GOOD RX AND LIST OF COMAPNIES THAT ASSIST WITH PRESCRIPTIONS, EMERGENCY ASSISTANCE LIST AND ALSO GAVE INFORMATION ABOUT CONTACTING DRUG MANUFACTURES ABOUT THEIR OWN FINANCIAL PROGRAMS.
[2020-01-26] MEDS: TRAMADOL HCL 50 MG TAB PO PRN (12:54)
--- NOTE | 2020-01-26 17:02 | NUR ---
Nutrition Screen Note RD Recommendation for Physician: - Recommend 1800 ADA diet Plan of Care: RD following, monitoring for tolerance and adequacy Nutrition reason for involvement: Length of stay Primary Diagnose(s): cellulitis, sepsis PMH: obesity, dermatitis, diabetes Ht: 72 in Wt:394.5 lb BMI: 53.5 kg/m2 IBW:[address] Assessment: (01/26/20) Chart reviewed. Labs and meds reviewed. Pt is a 44 year old male admitted with cellulitis and sepsis. It is recorded that pt has been consuming 75-100% of meals. There are no previous weights in chart. Will continue to monitor Current Diet: 2400 ADA diet Malnutrition Evaluation (01/26/20) The patient does not meet criteria for a specified degree of malnutrition at this time. Will re-evaluate at follow-up as appropriate. Diet Education Needs Assessment: RD is available for diet education as needed Nutrition Care Level: low (pt is eating well) Signed: Sailaja Nascimento RD, LD
[2020-01-26] MEDS: INSULIN LISPRO 100 UNIT/1 ML 3ML VIAL SQ SCH (18:06)
[2020-01-27] VITALS (8 sets, daily range): BP systolic 126–192; BP diastolic 68–110
[2020-01-27] MEDS: INSULIN LISPRO 100 UNIT/1 ML 3ML VIAL SQ SCH ×5 (00:45→21:15)
[2020-01-27] MEDS: CLONIDINE HCL 0.1 MG TAB PO PRN (01:14)
[2020-01-27] MEDS: FUROSEMIDE 40 MG TAB PO SCH ×2 (06:35→17:20)
--- NOTE | 2020-01-27 07:00 | NUR ---
Walking rounds done. Patient resting comfortably. Bed-side report given to oncoming nurse.
[2020-01-27] MEDS: VANCOMYCIN 1GM/NS 250 ML 250 ML IV SCH ×2 (07:36→17:24)
[2020-01-27] MEDS ORDERED: LISINOPRIL 10 MG TAB PO SCH (09:00)
[2020-01-27] MEDS: LEVOFLOXACIN 750MG/D5W 150ML 150 ML IV SCH (09:30)
[2020-01-27] MEDS: METHYLPREDNISOLONE SOD SUCC 125 MG/2ML VIAL IV SCH ×2 (09:31→20:38)
[2020-01-27] MEDS: AMLODIPINE BESYLATE 5 MG TAB PO SCH (09:32)
[2020-01-27] MEDS: HYDRALAZINE HCL 25 MG TAB PO SCH ×3 (09:36→20:40)
--- NOTE | 2020-01-27 10:03 | Progress Note ---
DATE: SUBJECTIVE: The patient is seen and evaluated. Discussed with Dr. Beard in details. Please refer to chart for more information. REVIEW OF SYSTEMS: No nausea, vomiting, fever, chills, chest pain, shortness of breath, headache, rash, dysuria, or polyuria. The patient tolerating antibiotics okay. The patient tells me that he is scared of going to home and he is concerned about the care of his left lower extremity cellulitis. OBJECTIVE: VITAL SIGNS: Temperature 97.6, pulse 97, respirations 19, blood pressure 179/104. Clinically, no acute distress. Alert and oriented, without headache or change in vision without any complaints. GENERAL: Alert and oriented, no acute distress. CV: S1 and S2. CHEST: Equal expansion. Decreased breath sounds. The patient is morbidly obese, difficult to assess the lungs on the physical exam. ABDOMEN: Morbidly obese. Soft. No tender. HEENT: Moist. No pallor. No JVD. EXTREMITIES: Cellulitis of left lower extremity with significant improvement in erythema and edema. The patient has couple ulcerations which they are covered and receiving local care. MEDICATIONS: From ID point of view, patient is on vancomycin IV, Levaquin and methylprednisolone. LABORATORY STUDIES: No new CBC or BMP from today. Toxicology; vancomycin trough is 7.4. SEROLOGY: Coronavirus PCR not detected, 01/21/2020. MICROBIOLOGY: Blood cultures, 01/21/2020 negative. Urine culture, 01/21/2020 negative. IMAGING: No new radiology studies available. ASSESSMENT AND PLAN: 1. Left lower extremity cellulitis. 2. Hypertension. Management per others. 3. Leukocytosis - the patient is on methylprednisolone 60 mg IV q.12 hours, denied diarrhea. 4. Morbid obesity. 5. Diabetes. 6. Debility, multifactorial. 7. Elevated LFT, resolved. 8. Currently with vancomycin IV and Levaquin while here. There is a prescription in the chart for doxycycline and ciprofloxacin for 2 weeks and the patient to continue with the wound care, can follow up with his PCP. Further management of this patient is based on daily findings on laboratory and physical examination. Please refer to chart for more information. Discussed with Dr. Beard. Dictated by Florian Snyder PA-C (Al) MD [facility]/HARISL /[id number]
[2020-01-27] MEDS: COLLAGENASE 5 GM TUBE TOP SCH (17:49)
--- NOTE | 2020-01-27 19:14 | NUR ---
REPORT GIVEN TO ONCOMING NURSE, WALKING ROUNDS COMPLETE.
--- NOTE | 2020-01-27 19:21 | NUR ---
Patient received sitting up in bed. AAO x 2. Patient had no complaints of pain. Respirations even and non-labored. Safety measures in place. Patient instructed to call for assistance when needed. Call light within reach. Addendum: 01/27/20 at 2317 by Wes Quan RN AAO x 4 not AAO x 2.
[2020-01-28] VITALS (10 sets, daily range): BP systolic 126–185; BP diastolic 77–122
[2020-01-28] MEDS: CLONIDINE HCL 0.1 MG TAB PO PRN (02:02)
[2020-01-28] MEDS: FUROSEMIDE 40 MG TAB PO SCH ×2 (06:18→17:27)
[2020-01-28] MEDS: VANCOMYCIN 1GM/NS 250 ML 250 ML IV SCH (06:18)
--- NOTE | 2020-01-28 06:37 | NUR ---
Wound treatment done on right leg per MD's orders.
--- NOTE | 2020-01-28 06:41 | NUR ---
IV on left arm infiltrated. Old IV removed with tip intact. New IV inserted in right upper arm 20G. Patient tolerated well.
--- NOTE | 2020-01-28 07:00 | NUR ---
Walking rounds done. Patient resting comfortably. Bed-side report given to oncoming nurse regarding patient's status.
--- NOTE | 2020-01-28 07:15 | NUR ---
Received bedside shift report. Patient resting at this time, alert. Call light within reach.
[2020-01-28] MEDS: INSULIN LISPRO 100 UNIT/1 ML 3ML VIAL SQ SCH ×4 (07:30→21:58)
[2020-01-28] MEDS: LEVOFLOXACIN 750MG/D5W 150ML 150 ML IV SCH (08:19)
[2020-01-28] MEDS: METHYLPREDNISOLONE SOD SUCC 125 MG/2ML VIAL IV SCH ×2 (08:19→21:55)
[2020-01-28] MEDS: LISINOPRIL 10 MG TAB PO SCH (08:20)
[2020-01-28] MEDS: HYDRALAZINE HCL 25 MG TAB PO SCH ×3 (08:20→21:56)
[2020-01-28] MEDS: AMLODIPINE BESYLATE 5 MG TAB PO SCH (08:20)
--- NOTE | 2020-01-28 11:08 | Progress Note ---
DATE: SUBJECTIVE: The patient is seen and evaluated. Available labs and notes reviewed. Questions answered. Please refer to chart for more information. Discussed with Dr. Beard in detail. REVIEW OF SYSTEMS: The patient feels better. He is happy with the progress of his left lower extremity cellulitis. Edema has improved. No nausea, vomiting, fever, chills, chest pain, shortness of breath. PHYSICAL EXAMINATION: VITAL SIGNS: Temperature 97.5, pulse 77, respirations 20, and blood pressure 123/70. GENERAL: Alert and oriented, in no acute distress. CV: S1, S2. CHEST: Equal expansion. Clear to auscultation. No acute distress. ABDOMEN: Soft, nontender. No distention. Morbidly obese. HEENT: Moist. No pallor. No JVD. EXTREMITIES: Cellulitis of left lower extremity with significant improvement in edema and erythema, wounds/ulcers are not deep and few of them are scabbed over and some with granulation of the wound/ulcers. MEDICATIONS: From Infectious Disease point of view, the patient is on Levaquin and vancomycin IV. LABORATORY STUDIES: No new CBC or BMP available. TOXICOLOGY: Vancomycin trough 7.4. MICROBIOLOGY: Blood culture and urine culture negative so far. IMAGING: No new radiology studies available. ASSESSMENT AND PLAN: 1. Cellulitis. 2. Ulcers of the left lower extremity. 3. Hypertension. 4. Leukocytosis-the patient is on methylprednisolone 60 mg IV q.12 hours. 5. Morbid obesity. 6. Debility. 7. Diabetes. 8. Elevated LFT, resolved. 9. Continue with antibiotics, vancomycin IV redosed secondary to trough, prescription in chart for doxycycline and Cipro p.o. for 2 weeks. Continue to monitor the patient clinically and follow with the labs. Please refer to chart for more information. Dictated by Florian Snyder PA-C (Al) Edgar Beard MD /MODL /[id number]
[2020-01-28] MEDS: COLLAGENASE 5 GM TUBE TOP SCH (12:53)
[2020-01-28] MEDS: HYDROMORPHONE 1MG/1ML INJ IV PRN (12:59)
[2020-01-28] MEDS: VANCOMYCIN HCL 1.25 GM in SODIUM CHLORIDE 0.9% 250ML 250 ML IV SCH (17:27)
[2020-01-29 00:34] VITALS: BP 168/96
[2020-01-29 05:03] VITALS: BP 153/101
[2020-01-29] MEDS: TRAMADOL HCL 50 MG TAB PO PRN (05:08)
[2020-01-29] MEDS: COLLAGENASE 5 GM TUBE TOP SCH (05:09)
--- NOTE | 2020-01-29 05:38 | Discharge Summary ---
DISCHARGE DIAGNOSES: 1. Cellulitis of the left lower extremity. 2. Severe dermatitis. 3. Hypertension. 4. Diabetes. 5. Sleep apnea. 6. Noncompliance. 7. Chronic systolic heart failure with ejection fraction of 45%. DISCHARGE MEDICATIONS: See discharge med rec. HOSPITAL FOLLOWUP: The patient was instructed to follow up with his primary care physician very soon, which he has been very noncompliant with. HISTORY OF PRESENT ILLNESS AND HOSPITAL COURSE: See hospital chart for full details. The patient is a gentleman, who presented with severe noncompliance to his blood pressure medication, diabetes medicine, where he came in with severe cellulitis and sepsis secondary to left lower extremity cellulitis and dermatitis of the body. He was brought in, placed on IV antibiotics, and ultimately needed some IV steroids to really help clear the infection. He had an echo done showed an EF of 45%. He had severe hypertension that required restarting medications. At the time of discharge, he was sent home with hydralazine 100 mg t.i.d., Norvasc 10 mg daily, and lisinopril 20 mg daily, which at that point his blood pressure was improved. He obviously had evidence of sleep apnea in the hospital. He was encouraged to get an outpatient sleep study done. He was told that his life expectancy is very limited due to his severe morbid obesity, noncompliance, diabetes, hypertension, heart failure, that this sleep study is imperative, which he understood. At the time of discharge, his leg looked significantly better as well as his dermatitis. He was discharged home with Cipro and doxycycline as an antibiotic course. Told to follow up in 1 week with his primary care physician. Please see hospital chart for full details. MD TOYA Becerril/KIM /[id number]
[2020-01-29] MEDS: VANCOMYCIN HCL 1.25 GM in SODIUM CHLORIDE 0.9% 250ML 250 ML IV SCH (06:02)
[2020-01-29] MEDS: FUROSEMIDE 40 MG TAB PO SCH (06:38)
--- NOTE | 2020-01-29 07:10 | NUR ---
RCD PT AT BED PT IS ALERT AND ORIENTED PT RESTING ON BED IV PATENT BED LOW AND LOCKED CALL LIGHT IN REACH
[2020-01-29] MEDS: INSULIN LISPRO 100 UNIT/1 ML 3ML VIAL SQ SCH (07:30)
[2020-01-29 07:48] VITALS: BP 197/124
[2020-01-29] MEDS ORDERED: DOXYCYCLINE HY100 MG PO (07:50)
[2020-01-29] MEDS ORDERED: ULTRAM 50MG50 MG PO (07:51)
[2020-01-29] MEDS ORDERED: HYDRALAZINE HCL25 MG PO (07:52)
[2020-01-29] MEDS ORDERED: POTASSIUM CHLO10 ME1 PO (07:52)
[2020-01-29] MEDS ORDERED: LISINOPRIL10 MG PO (07:53)
[2020-01-29] MEDS ORDERED: PREDNISONE10 MG PO (07:54)
--- NOTE | 2020-01-29 08:00 | NUR ---
PT REQUESTED DIABETIC MED SO PAGED AND NOTIFIED DR HERNÁNDEZ HE ASKED PHARMACY AND PTS DETAILS HE SAID HE WILL SEND THE PRESCRIPTION TO PHARMACY NOTIFIED THE PATIENT
[2020-01-29 08:20] VITALS: BP 197/100
[2020-01-29] MEDS: LEVOFLOXACIN 750MG/D5W 150ML 150 ML IV SCH (09:00)
[2020-01-29] MEDS: AMLODIPINE BESYLATE 5 MG TAB PO SCH (09:00)
[2020-01-29] MEDS: METHYLPREDNISOLONE SOD SUCC 125 MG/2ML VIAL IV SCH (09:00)
[2020-01-29] MEDS: LISINOPRIL 10 MG TAB PO SCH (09:00)
[2020-01-29] MEDS: HYDRALAZINE HCL 25 MG TAB PO SCH (09:00)
[2020-01-29 09:45] VITALS: BP 168/88
--- NOTE | 2020-01-29 10:06 | NUR ---
PT WENT HOME IN SAFE CONDITION WITH HIS
[2020-01-29] MEDS ORDERED: ONDANSETRON HCL 4 MG ORAL DISINTEGRATING TAB PO PRN (10:30)
== END 2020-01-29 10:03 | disposition home or self-care (01) | DRG 871 ==
LOC: ER 15:28 → ERHOLD 17:45 → MED/SURG2 21:32 → UNDODISIN 01-26 15:05
PROVIDERS: ADMIT Internal Medicine; ATTEND Internal Medicine
DX: A41.9 Sepsis, unspecified organism (principal); I50.23 Acute on chronic systolic (congestive) heart failure; Z68.43 Body mass index [BMI] 50.0-59.9, adult; L03.116 Cellulitis of left lower limb; L97.821 Non-pressure chronic ulcer of other part of left lower leg limited to breakdown of skin; E11.65 Type 2 diabetes mellitus with hyperglycemia; Z83.3 Family history of diabetes mellitus; E66.01 Morbid (severe) obesity due to excess calories; R79.89 Other specified abnormal findings of blood chemistry; I11.0 Hypertensive heart disease with heart failure; L30.9 Dermatitis, unspecified; G47.33 Obstructive sleep apnea (adult) (pediatric); T36.1X5A Adverse effect of cephalosporins and other beta-lactam antibiotics, initial encounter; Y92.230 Patient room in hospital as the place of occurrence of the external cause; R53.81 Other malaise; T46.5X6A Underdosing of other antihypertensive drugs, initial encounter
CPT/HCPCS: 36415; 71045; 80053; 80202; 81001; 82550; 82553; 82948; 83036; 83605; 83735; 83880; 84484; 85025; 85610; 85730; 87040; 87086; 87635; 93005; 93306; 93970; 96361; 99251; 99284; J0360; J0696; J1170; J2270; J2405; J2543; J2930; J3370; J3410; J7030; J7050